=== PATIENT | female | born 1980 | race Two or more races ===

== ENCOUNTER 2023-01-29 06:08 | Emergency (ER) | payer MEDICAID ==
[~2023-01-29] VITALS: Ht 160 cm; Wt 87.8 kg
[2023-01-29 06:12] VITALS: BP 143/84
[2023-01-29] MEDS ORDERED: ATOR20TA PO (06:21)
[2023-01-29] MEDS ORDERED: METF-1211 PO (06:21)
[2023-01-29] MEDS ORDERED: FERR325T27 PO (06:21)
[2023-01-29] MEDS ORDERED: SERT-162 PO (06:21)
[2023-01-29] MEDS ORDERED: RISP2TAB45 PO (06:21)
[2023-01-29] MEDS ORDERED: PRAZ1 PO (06:21)
[2023-01-29] MEDS ORDERED: METH500T4 PO (06:21)
[2023-01-29 06:26] LABS: GLUCOMETER DEV NAME(LOC) ERT.5; GLUCOSE,POINT OF CARE 146 MG/DL (70-110)
[2023-01-29] MEDS ORDERED: LORazepam 1 MG TABLET PO ONE (07:15)
[2023-01-29] MEDS ORDERED: DiphenhydrAMINE HCL 25 MG CAPSULE PO ONE (07:15)
[2023-01-29 07:20] LABS: BASOPHILS % (AUTO) 0.6 % (0.0-2.0); EOSINOPHILS % (AUTO) 1.9 % (1.0-6.0); HEMATOCRIT 37.3 % (36-46); HEMOGLOBIN 12.9 g/dL (12.0-16.0); LYMPHOCYTES # (AUTO) 1.7 K/uL (1.0-4.8); LYMPHOCYTES % (AUTO) 20.9 % (22.0-44.0); MEAN CORPUSCULAR HEMOGLOBIN 30.6 pg (26.0-34.0); MEAN CORPUSCULAR HGB CONC 34.6 G/dL (31.0-37.0); MEAN CORPUSCULAR VOLUME 89 fL (80-100); MONOCYTES # (AUTO) 0.4 K/uL (0.1-1.0); MONOCYTES % (AUTO) 5.3 % (2.0-9.0); NEUTROPHILS # (AUTO) 5.9 K/uL (1.8-7.7); NEUTROPHILS % (AUTO) 71.3 % (40.0-70.0); PLATELET COUNT (AUTO) 342 K/uL (150-450); RED BLOOD CELL COUNT(AUTO) 4.22 MIL/uL (4.00-5.20); RED CELL DISTRIBUTION WIDTH 12.5 % (11.5-14.5)
[2023-01-29 07:32] LABS: ANION GAP 12 mmol/L (8-16); CALCIUM, TOTAL 9.6 mg/dL (8.8-10.5); CARBON DIOXIDE 25 mmol/L (22-29); CHLORIDE 97 mmol/L (98-107); CREATININE 0.57 mg/dL (0.60-1.30); GLOMERULAR FILTR. RATE CALC > 60 mL/min (>60); GLUCOSE,RANDOM 155 mg/dL (70-110); POTASSIUM 3.3 mmol/L (3.5-5.1); SODIUM SERUM 134 mmol/L (136-145)
[2023-01-29 07:37] LABS: D-DIMER 0.26 mg/L FEU (0.00-0.50); PROTHROMBIN TIME 10.3 SEC (9.4-11.6)
[2023-01-29 07:52] LABS: B-TYPE NATRIURETIC PEPTIDE 5 pg/mL (0-100)
[2023-01-29 07:58] LABS: ALANINE AMINOTRANSFERASE 30 U/L (12-78); ALBUMIN 3.9 g/dL (3.4-5.0); ALKALINE PHOSPHATASE 90 U/L (46-116); ASPARTATE AMINOTRANSFERASE 18 U/L (15-37); BILIRUBIN,TOTAL 0.8 mg/dL (0.1-1.0); CREATINE KINASE, TOTAL ONLY 187 U/L (26-192); TOTAL PROTEIN, SERUM 8.8 g/dL (6.4-8.2)
[2023-01-29] MEDS ORDERED: KETOROLAC TROMETHAMINE 60 MG/2 ML VIAL IM ONE (08:00)
== END 2023-01-29 11:01 | disposition home or self-care (01) ==
LOC: EMS 06:11 → EDBD 06:11 → EMS 11:01
DX: R00.2 Palpitations (principal); F41.9 Anxiety disorder, unspecified; Z79.84 Long term (current) use of oral hypoglycemic drugs
CPT/HCPCS: 99285; 71045; 80053; 82550; 82962; 83880; 84484; 85025; 85379; 85610; 85730; 36415; 93005; 96372; J1885